=== PATIENT | male | born 1990 | race Caucasian/White ===

== ENCOUNTER 2018-10-22 02:55 | Emergency (ER) | payer BC ==
[~2018-10-22] VITALS: Ht 172.7 cm; Wt 84.8 kg
[2018-10-22] MEDS ORDERED: IPRATROPIUM BROM 0.5 MG/2.5ML INH SOL NEB ONE (03:15)
[2018-10-22 04:33] VITALS: BP 103/68
[2018-10-22] MEDS ORDERED: DEXAMETHASONE SOD PHOS 10MG/1ML VIAL INJ IM ONE (04:45)
[2018-10-22] MEDS ORDERED: EPINEPHrine HCL 1 MG/1 ML AMP SC ONE (04:45)
[2018-10-22] MEDS ORDERED: EPINEPHrine HCL 0.5 ML NEB NEB SCH (05:00)
== END 2018-10-22 05:27 | disposition home or self-care (01) ==
LOC: ER 02:57
DX: J45.901 Unspecified asthma with (acute) exacerbation (principal); F17.210 Nicotine dependence, cigarettes, uncomplicated
CPT/HCPCS: 71046; 94640; 96372; 99284; J0171; J1100; J7644

== ENCOUNTER 2019-09-05 14:36 | Emergency (ER) | payer BC ==
[~2019-09-05] VITALS: Ht 172.7 cm; Wt 83.9 kg
[2019-09-05] MEDS ORDERED: ACETAMINOPHEN 500 MG TAB PO ONE (18:00)
[2019-09-05] MEDS ORDERED: SODIUM CHLORIDE 0.9% 1,000 ML IV ONE (18:00)
[2019-09-05] MEDS ORDERED: ALBUTEROL SULF 2.5 MG/0.5ML(0.5%) NEB SOLN NEB ONE (18:00)
[2019-09-05] MEDS ORDERED: IPRATROPIUM BROM 0.5 MG/2.5ML INH SOL NEB ONE (18:00)
[2019-09-05 18:14] LABS: Basophils # (auto) 0.1 uL; Basophils % (auto) 0.8 % (0.0-2.0); Eosinophils # (auto) 0 uL; Eosinophils % (auto) 0.3 % (0.0-7.0); Hematocrit 49.2 % (41.0-53.0); Lymphocytes # (auto) 0.6 uL; Lymphocytes % (auto) 7.5 % (10.0-50.0); Mean Corpuscular Hemoglobin 31.1 pg (28.0-32.0); Mean Corpuscular Hgb Conc. 34.6 g/dL (32.0-36.0); Mean Corpuscular Volume 89.9 fL (80.0-100.0); Monocytes # (auto) 1.4 uL; Monocytes % (auto) 16.7 % (0.0-12.0); Neutrophils # (auto) 6.4 uL; Neutrophils % (auto) 74.7 % (37.0-80.0); Nucleated Red Blood Cells % 0.3 %; Platelet Count (auto) 225 10^3/uL (140-450); Red Blood Cells 5.48 10^6/uL (4.5-5.90); Red Cell Distribution Width 13.1 % (11.8-14.3); White Blood Cell 8.5 10^3/uL (4.4-10.8)
[2019-09-05 18:27] LABS: BUN/Creatinine Ratio 8.1; Calcium 8.9 mg/dL (8.5-10.1); Potassium 3.8 mmol/L (3.5-5.1)
[2019-09-05] MEDS ORDERED: methylPREDNISolone SOD SUCC 125 MG/2 ML VL IV ONE (19:00)
[2019-09-05 19:07] VITALS: BP 118/74
== END 2019-09-05 19:10 | disposition home or self-care (01) ==
LOC: ER 14:36
DX: J10.1 Influenza due to other identified influenza virus with other respiratory manifestations (principal)
CPT/HCPCS: 36415; 71046; 80048; 85025; 87804; 94640; 96374; 99284; J2930; J7611; J7644